=== PATIENT | female | born 1975 | race Caucasian/White ===

== ENCOUNTER 2025-04-29 10:33 | Emergency (ER) | payer MEDICAID, MEDICARE ==
[2025-04-29] MEDS: Ketorolac 60 MG/2 ML SDV IM ONE (11:47)
[2025-04-29] MEDS: Acetaminophen/oxyCODONE 325-5 MG Tab PO ONE (11:47)
== END 2025-04-29 12:25 | disposition home or self-care (01) ==
LOC: JD.ED 10:33
DX: M25.511 Pain in right shoulder (principal); X58.XXXA Exposure to other specified factors, initial encounter
CPT/HCPCS: 73020; 96372; 99283; A9270; J1885; 99284